=== PATIENT | male | born 1975 | race Hispanic/Latino ===

== ENCOUNTER 2022-01-08 08:14 | Emergency (ER) | payer OTHER ==
[~2022-01-08] VITALS: Ht 180.3 cm; Wt 102.1 kg
[2022-01-08 08:45] LABS: BASOPHILS % 0.3 % (0.0-1.0); EOSINOPHILS % 0.4 % (0.0-6.0); HEMATOCRIT 42.9 % (38.2-49.6); HEMOGLOBIN 13.9 g/dL (14.0-18.0); LYMPHOCYTES # (AUTO) 1.5 (1.0-3.2); LYMPHOCYTES % 18.2 % (18.0-39.1); MEAN CORPUSCULAR HEMOGLOBIN 25.9 pg (28-32); MEAN CORPUSCULAR HGB CONC 32.4 g/dL (31-35); MEAN CORPUSCULAR VOLUME 79.9 fL (81-99); MONOCYTES # (AUTO) 0.4 (0.2-0.8); MONOCYTES % 5.4 % (4.4-11.3); NEUTROPHILS % 75.4 % (38.7-80.0); PLATELET COUNT 222 x10e3/uL (140-360); RED BLOOD COUNT 5.37 x10e6/uL (4.3-5.7); RED CELL DISTRIBUTION WIDTH 12.9 % (11.7-14.4)
[2022-01-08 08:59] LABS: CLARITY,URINE CLEAR (CLEAR); COLOR,URINE YELLOW (YELLOW); LEUKOCYTE ESTERASE ,URINE NEGATIVE (NEGATIVE); NITRITE,URINE NEGATIVE (NEGATIVE); PROTEIN,URINE DIPSTICK NEGATIVE (NEGATIVE)
[2022-01-08 09:00] LABS: KETONES,URINE NEGATIVE (NEGATIVE); URINE UROBILINOGEN 0.2 mg/dL (0.2 - 1)
[2022-01-08 09:03] LABS: BACTERIA,URINE FEW /HPF; EPITHELIAL CELLS,URINE FEW /LPF; RBC,URINE 0-5 /HPF (0-5); WBC,URINE (MAN) 0-5 /HPF (0-5)
[2022-01-08 09:05] LABS: ALBUMIN 4.3 g/dL (3.5-5.0); ALBUMIN/GLOBULIN RATIO 1.3 (0.8-2.0); CALCIUM 9.3 mg/dL (8.4-10.2); CREATININE, SERUM 0.87 mg/dL (0.72-1.25)
[2022-01-08] MEDS ORDERED: SODIUM CHLORIDE 0.9% 50ML 50 ML ONE (09:53)
[2022-01-08] MEDS ORDERED: IOPAMIDOL 370 MG/ML 200 ML INFUS..BTL INJ ONE (09:53)
[2022-01-08] MEDS ORDERED: Morphine 4mg Syringe 4 MG/ML INJ IV STA (10:55)
[2022-01-08] MEDS ORDERED: ONDANSETRON HCL INJ 2MG/ML 2ML 2 MG/ML VIAL IV STA (10:55)
[2022-01-08] MEDS ORDERED: ACETAMINOPHEN-1 EAC4 PO (11:13)
[2022-01-08] MEDS ORDERED: METRONIDAZOLE500 MG PO (11:13)
[2022-01-08] MEDS ORDERED: ONDANSETRON ODT4 MG PO (11:13)
[2022-01-08] MEDS ORDERED: CIPRO500 MG PO (11:13)
[2022-01-08 11:46] VITALS: BP 112/75
== END 2022-01-08 11:25 | disposition home or self-care (01) ==
LOC: ER 08:20
DX: R10.31 Right lower quadrant pain (principal); K57.32 Diverticulitis of large intestine without perforation or abscess without bleeding; Z98.0 Intestinal bypass and anastomosis status
CPT/HCPCS: 36415; 74177; 80053; 81001; 83690; 85025; 99284; J2270; J2405; Q9967